=== PATIENT | female | born 1975 | race Caucasian/White ===

== ENCOUNTER → 2016-09-15 | Outpatient (CLI) | payer BC ==
[~2016-09-15] MED LIST: AMLODIPINE BESYL5 MG PO; BACTRIM DS 8001 TA1 PO; BACTRIM DS 8001 TAB PO; CIPRO250 MG PO; FLEXERIL10 MG PO; HYDROCODONE BIT1 T11 PO; KEFLEX500 MG PO; LISINOPRIL20 MG PO; MACROBID100 M1 PO; METFORMIN500 MG PO; MOTRIN800 MG PO; NKHM; NORETHINDRONE AC5 M1 PO; ROBITUSSIN DM120 ML PO; VIBRAMYCIN100 MG PO; ZOFRAN ODT4 MG SL
[2016-09-15 08:49] LABS: HEMOGLOBIN A1c 5.9 % (4.8-5.6)
== END | disposition home or self-care (01) ==
LOC: LAB 07:40
PROVIDERS: Internal Medicine Hospice and Palliative Medicine
DX: E11.65 Type 2 diabetes mellitus with hyperglycemia (principal)

== ENCOUNTER → 2016-09-29 | Outpatient (CLI) | payer BC | END | disposition home or self-care (01) | LOC: MAMMO 09:39 | DX: Z12.31 Encounter for screening mammogram for malignant neoplasm of breast (principal) ==

== ENCOUNTER → 2017-03-03 | Outpatient (CLI) | payer BC ==
[2017-03-03 12:16] LABS: HEMOGLOBIN A1c 6.2 % (4.8-5.6)
== END | disposition home or self-care (01) ==
LOC: LAB 11:14
PROVIDERS: Internal Medicine
DX: E11.65 Type 2 diabetes mellitus with hyperglycemia (principal)

== ENCOUNTER → 2017-03-20 | Outpatient (CLI) | payer BC | END | disposition home or self-care (01) | LOC: RESCLI 02:08 | DX: E11.9 Type 2 diabetes mellitus without complications (principal); I10 Essential (primary) hypertension; E66.01 Morbid (severe) obesity due to excess calories ==

== ENCOUNTER → 2017-06-16 | Outpatient (CLI) | payer BC ==
[2017-06-16 07:08] LABS: BASO % 0.4 % (0.0-1.0); EOS # 0.3 10*3/uL (0.0-0.4); EOS % 4.2 % (1.0-4.0); HEMATOCRIT 37.9 % (37.0-47.0); HEMOGLOBIN 12.4 g/dl (12.0-16.0); LYMPH # 2.5 10*3/uL (1.3-4.4); LYMPH % 34.6 % (27.0-41.0); MEAN CELL VOLUME 83.8 fl (81.0-99.0); MEAN CORPUSCULAR HGB 27.4 pg (27.0-31.0); MEAN CORPUSCULAR HGB CONC 32.7 g/dl (33.0-37.0); MEAN PLATELET VOLUME 9.8 fl (9.6-12.3); MONO # 0.6 10*3/uL (0.1-1.0); MONO % 8.9 % (3.0-9.0); NEUT # 3.7 10*3/uL (2.3-7.9); NEUT % 51.5 % (47.0-73.0); PLATELET COUNT AUTOMATED 203 10*3/uL (130-400); RED BLOOD COUNT 4.52 10*6/uL (4.10-5.10); RED CELL DISTRI WIDTH 14.6 % (0-14.5); WHITE BLOOD COUNT 7.2 10*3/uL (4.8-10.8)
[2017-06-16 07:27] LABS: ALBUMIN 3.7 gm/dl (3.1-4.5); ALKALINE PHOSPHATASE 56 U/L (45-117); BUN 13 mg/dl (7-24); CHLORIDE 108 mmol/L (98-107); CREATININE 0.76 mg/dL (0.55-1.02); POTASSIUM 4.2 mmol/L (3.5-5.1); SGOT/AST 12 IU/L (3-35); SGPT/ALT 18 U/L (12-78); SODIUM 139 mmol/L (136-145); TOTAL PROTEIN 7.6 gm/dL (6.4-8.2)
[2017-06-16 09:02] LABS: VITAMIN D, 25-HYDROXY 15.4 ng/mL (30-100)
== END | disposition home or self-care (01) ==
LOC: LAB 06:30
PROVIDERS: Hospitalist
DX: E55.9 Vitamin D deficiency, unspecified (principal); R79.89 Other specified abnormal findings of blood chemistry; Z79.4 Long term (current) use of insulin

== ENCOUNTER → 2017-06-19 | Outpatient (CLI) | payer BC | END | disposition home or self-care (01) | LOC: RESCLI 01:28 | DX: E11.65 Type 2 diabetes mellitus with hyperglycemia (principal); I10 Essential (primary) hypertension; E53.8 Deficiency of other specified B group vitamins; E55.9 Vitamin D deficiency, unspecified; J01.90 Acute sinusitis, unspecified; N93.8 Other specified abnormal uterine and vaginal bleeding; E66.01 Morbid (severe) obesity due to excess calories ==

== ENCOUNTER 2017-07-02 13:58 | Emergency (ER) | payer BC ==
[~2017-07-02] VITALS: Ht 167.6 cm; Wt 190.5 kg
[2017-07-02] MEDS ORDERED: MEDROL DOSEPAK4 MG PO (16:13)
[2017-07-02] MEDS ORDERED: AUGMENTIN 875875 MG PO (16:13)
[2017-07-02] MEDS ORDERED: ZYRTEC10 MG PO (16:13)
== END 2017-07-02 16:35 | disposition home or self-care (01) ==
LOC: ED 13:58
DX: J32.9 Chronic sinusitis, unspecified (principal); Z98.890 Other specified postprocedural states; Z79.899 Other long term (current) drug therapy; Z88.6 Allergy status to analgesic agent; Z88.8 Allergy status to other drugs, medicaments and biological substances

== ENCOUNTER 2017-08-06 12:49 | Emergency (ER) | payer BC ==
[~2017-08-06] VITALS: Ht 167.6 cm; Wt 190.5 kg
[~2017-08-06 12:49] MED LIST changes: +AUGMENTIN 875875 MG PO; +MEDROL DOSEPAK4 MG PO; +ZYRTEC10 MG PO
[2017-08-06 14:22] LABS: BASO % 0.4 % (0.0-1.0); EOS # 0.1 10*3/uL (0.0-0.4); EOS % 1.6 % (1.0-4.0); HEMATOCRIT 41.4 % (37.0-47.0); HEMOGLOBIN 13.8 g/dl (12.0-16.0); LYMPH # 2.2 10*3/uL (1.3-4.4); LYMPH % 32.5 % (27.0-41.0); MEAN CELL VOLUME 84.7 fl (81.0-99.0); MEAN CORPUSCULAR HGB 28.2 pg (27.0-31.0); MEAN CORPUSCULAR HGB CONC 33.3 g/dl (33.0-37.0); MEAN PLATELET VOLUME 9.5 fl (9.6-12.3); MONO # 0.6 10*3/uL (0.1-1.0); MONO % 8.7 % (3.0-9.0); NEUT # 3.8 10*3/uL (2.3-7.9); NEUT % 56.2 % (47.0-73.0); PLATELET COUNT AUTOMATED 215 10*3/uL (130-400); RED BLOOD COUNT 4.89 10*6/uL (4.10-5.10); RED CELL DISTRI WIDTH 14.2 % (0-14.5); WHITE BLOOD COUNT 6.7 10*3/uL (4.8-10.8)
[2017-08-06 14:40] LABS: ALBUMIN 3.9 gm/dl (3.1-4.5); ALKALINE PHOSPHATASE 64 U/L (45-117); BUN 11 mg/dl (7-24); CHLORIDE 106 mmol/L (98-107); CREATININE 0.88 mg/dL (0.55-1.02); LIPASE 103 U/L (73-393); POTASSIUM 3.9 mmol/L (3.5-5.1); SGOT/AST 17 IU/L (3-35); SGPT/ALT 24 U/L (12-78); SODIUM 140 mmol/L (136-145); TOTAL PROTEIN 7.8 gm/dL (6.4-8.2)
[2017-08-06 14:43] LABS: BETA-HCG, QUANT < 1.0 mIU/mL (1-3)
[2017-08-06 15:05] LABS: BILIRUBIN NEGATIVE (NEGATIVE); BLOOD 1+ (NEGATIVE); CLARITY SL CLOUDY (CLEAR); COLOR YELLOW (YELLOW); GLUCOSE NEGATIVE (NEGATIVE); KETONE NEGATIVE (NEGATIVE); LEUKO ESTERASE NEGATIVE (NEGATIVE); NITRITE NEGATIVE (NEGATIVE); PH 5.5 (5.0-9.0); SPECIFIC GRAVITY 1.025 (1.005-1.030); UROBILINOGEN 0.2 E.U./dl (0.2-1.0)
[2017-08-06 15:36] LABS: BACTERIA 2+; MUCOUS TRACE; RBC 0-2 rbc/hpf (0-2)
[2017-08-06] MEDS ORDERED: SEPTDS PO (15:58)
== END 2017-08-06 16:07 | disposition home or self-care (01) ==
LOC: ED 12:49
PROVIDERS: Emergency Medicine
DX: N39.0 Urinary tract infection, site not specified (principal); F10.10 Alcohol abuse, uncomplicated; E11.65 Type 2 diabetes mellitus with hyperglycemia; Z88.6 Allergy status to analgesic agent; Z88.8 Allergy status to other drugs, medicaments and biological substances; Z79.84 Long term (current) use of oral hypoglycemic drugs; Z79.899 Other long term (current) drug therapy

== ENCOUNTER → 2017-09-12 | Outpatient (CLI) | payer BC ==
[~2017-09-12] MED LIST changes: +SEPTDS PO
== END | disposition home or self-care (01) ==
LOC: RESCLI 03:34
DX: E11.9 Type 2 diabetes mellitus without complications (principal); E55.9 Vitamin D deficiency, unspecified; E53.8 Deficiency of other specified B group vitamins; I10 Essential (primary) hypertension; E66.01 Morbid (severe) obesity due to excess calories

== ENCOUNTER → 2017-10-20 | Outpatient (CLI) | payer BC ==
[2017-10-20 08:00] LABS: HEMATOCRIT 37.5 % (37.0-47.0); HEMOGLOBIN 12.4 g/dl (12.0-16.0); MEAN CELL VOLUME 82.8 fl (81.0-99.0); MEAN CORPUSCULAR HGB 27.4 pg (27.0-31.0); MEAN CORPUSCULAR HGB CONC 33.1 g/dl (33.0-37.0); MEAN PLATELET VOLUME 9.5 fl (9.6-12.3); RED BLOOD COUNT 4.53 10*6/uL (4.10-5.10); RED CELL DISTRI WIDTH 13.9 % (0-14.5); WHITE BLOOD COUNT 6.3 10*3/uL (4.8-10.8)
[2017-10-20 08:26] LABS: ALBUMIN 3.9 gm/dl (3.1-4.5); ALKALINE PHOSPHATASE 55 U/L (45-117); BUN 14 mg/dl (7-24); CHLORIDE 106 mmol/L (98-107); CREATININE 0.78 mg/dL (0.55-1.02); POTASSIUM 4.2 mmol/L (3.5-5.1); SGOT/AST 16 IU/L (3-35); SGPT/ALT 24 U/L (12-78); SODIUM 139 mmol/L (136-145)
[2017-10-20 08:35] LABS: FREE T4 1.13 ng/dl (0.76-1.46); THYROID STIM HORMONE (HS) 1.73 uIU/ml (0.358-4.75)
== END | disposition home or self-care (01) ==
LOC: LAB 07:19
PROVIDERS: Nurse Practitioner Primary Care; Student in an Organized Health Care Education/Training Program
DX: I10 Essential (primary) hypertension (principal); Z68.45 Body mass index [BMI] 70 or greater, adult

== ENCOUNTER → 2017-11-11 | Outpatient (CLI) | payer BC | END | disposition home or self-care (01) | LOC: US 09:46 | DX: N93.8 Other specified abnormal uterine and vaginal bleeding (principal); E66.01 Morbid (severe) obesity due to excess calories ==

== ENCOUNTER → 2018-01-03 | Outpatient (CLI) | payer BC | END | disposition home or self-care (01) | LOC: MAMMO 07:25 | DX: Z12.31 Encounter for screening mammogram for malignant neoplasm of breast (principal) ==

== ENCOUNTER → 2018-03-16 | Outpatient (CLI) | payer BC | END | disposition home or self-care (01) | LOC: RESCLI 02:40 | DX: I10 Essential (primary) hypertension (principal); E11.8 Type 2 diabetes mellitus with unspecified complications; E55.9 Vitamin D deficiency, unspecified; E53.8 Deficiency of other specified B group vitamins; E66.01 Morbid (severe) obesity due to excess calories; N93.8 Other specified abnormal uterine and vaginal bleeding ==

== ENCOUNTER → 2018-06-15 | Outpatient (CLI) | payer BC | END | disposition home or self-care (01) | LOC: RESCLI 01:49 | DX: I10 Essential (primary) hypertension (principal); E11.8 Type 2 diabetes mellitus with unspecified complications; N93.8 Other specified abnormal uterine and vaginal bleeding; E55.9 Vitamin D deficiency, unspecified; E53.8 Deficiency of other specified B group vitamins; E66.01 Morbid (severe) obesity due to excess calories; Z79.84 Long term (current) use of oral hypoglycemic drugs; Z79.899 Other long term (current) drug therapy; Z91.018 Allergy to other foods; Z88.6 Allergy status to analgesic agent ==

== ENCOUNTER → 2018-08-23 | Outpatient (CLI) | payer BC ==
[2018-08-23 11:06] LABS: BASO % 0.4 % (0.0-1.0); EOS # 0.2 10*3/uL (0.0-0.4); EOS % 2.7 % (1.0-4.0); HEMATOCRIT 37.4 % (37.0-47.0); HEMOGLOBIN 12.4 g/dl (12.0-16.0); LYMPH # 2.2 10*3/uL (1.3-4.4); LYMPH % 33.3 % (27.0-41.0); MEAN CELL VOLUME 85.4 fl (81.0-99.0); MEAN CORPUSCULAR HGB 28.3 pg (27.0-31.0); MEAN CORPUSCULAR HGB CONC 33.2 g/dl (33.0-37.0); MEAN PLATELET VOLUME 9.1 fl (9.6-12.3); MONO # 0.6 10*3/uL (0.1-1.0); MONO % 8.2 % (3.0-9.0); NEUT # 3.7 10*3/uL (2.3-7.9); NEUT % 54.8 % (47.0-73.0); PLATELET COUNT AUTOMATED 199 10*3/uL (130-400); RED BLOOD COUNT 4.38 10*6/uL (4.10-5.10); RED CELL DISTRI WIDTH 15.4 % (0-14.5); WHITE BLOOD COUNT 6.7 10*3/uL (4.8-10.8)
[2018-08-23 11:34] LABS: ALBUMIN 3.9 gm/dl (3.1-4.5); ALKALINE PHOSPHATASE 57 U/L (45-117); BUN 15 mg/dl (7-24); CHLORIDE 106 mmol/L (98-107); CHOLESTEROL 118 mg/dL (<200); CREATININE 0.76 mg/dL (0.55-1.02); HDL CHOLESTEROL 33 mg/dl (40-60); LDL CHOLESTEROL 47 mg/dL (9-159); SGOT/AST 14 IU/L (3-35); SGPT/ALT 22 U/L (12-78); SODIUM 140 mmol/L (136-145); TOTAL PROTEIN 7.5 gm/dL (6.4-8.2); TRIGLYCERIDES 190 mg/dl (<150); VLDL CHOLESTEROL 38 mg/dL (6-40)
[2018-08-23 12:05] LABS: VITAMIN D, 25-HYDROXY 34.8 ng/mL (30-100)
== END | disposition home or self-care (01) ==
LOC: LAB 10:49
PROVIDERS: Internal Medicine
DX: E11.8 Type 2 diabetes mellitus with unspecified complications (principal)

== ENCOUNTER → 2018-08-28 | Outpatient (CLI) | payer BC | END | disposition home or self-care (01) | LOC: RESCLI 04:53 | DX: E66.01 Morbid (severe) obesity due to excess calories (principal); I10 Essential (primary) hypertension; E11.8 Type 2 diabetes mellitus with unspecified complications; N93.8 Other specified abnormal uterine and vaginal bleeding; E55.9 Vitamin D deficiency, unspecified; E53.8 Deficiency of other specified B group vitamins; Z79.84 Long term (current) use of oral hypoglycemic drugs; Z79.899 Other long term (current) drug therapy; Z88.8 Allergy status to other drugs, medicaments and biological substances ==

== ENCOUNTER → 2018-09-29 | Outpatient (CLI) | payer BC ==
[2018-09-29 10:52] LABS: BUN 19 mg/dl (7-24); CHLORIDE 107 mmol/L (98-107); CREATININE 0.88 mg/dL (0.55-1.02); POTASSIUM 4.4 mmol/L (3.5-5.1); SODIUM 139 mmol/L (136-145)
== END | disposition home or self-care (01) ==
LOC: LAB 09:30
PROVIDERS: Internal Medicine
DX: E53.8 Deficiency of other specified B group vitamins (principal); I10 Essential (primary) hypertension

== ENCOUNTER → 2018-10-03 | Outpatient (CLI) | payer BC | END | disposition home or self-care (01) | LOC: RESCLI 02:49 | DX: I10 Essential (primary) hypertension (principal); E11.8 Type 2 diabetes mellitus with unspecified complications; N93.8 Other specified abnormal uterine and vaginal bleeding; E55.9 Vitamin D deficiency, unspecified; E53.8 Deficiency of other specified B group vitamins; E66.01 Morbid (severe) obesity due to excess calories; Z79.899 Other long term (current) drug therapy; Z88.8 Allergy status to other drugs, medicaments and biological substances ==

== ENCOUNTER → 2018-12-18 | Outpatient (CLI) | payer BC | END | disposition home or self-care (01) | LOC: MAMMO 13:21 | DX: Z12.31 Encounter for screening mammogram for malignant neoplasm of breast (principal) ==

== ENCOUNTER → 2019-02-19 | Outpatient (CLI) | payer BC | END | disposition home or self-care (01) | LOC: RESCLI 01:23 | DX: E66.01 Morbid (severe) obesity due to excess calories (principal); I10 Essential (primary) hypertension; E11.8 Type 2 diabetes mellitus with unspecified complications; N93.8 Other specified abnormal uterine and vaginal bleeding; E55.9 Vitamin D deficiency, unspecified; E53.8 Deficiency of other specified B group vitamins; L71.9 Rosacea, unspecified; Z79.899 Other long term (current) drug therapy; Z88.8 Allergy status to other drugs, medicaments and biological substances ==

== ENCOUNTER → 2019-03-21 | Outpatient (CLI) | payer BC | END | disposition home or self-care (01) | LOC: US 14:39 | DX: N92.0 Excessive and frequent menstruation with regular cycle (principal) ==

== ENCOUNTER → 2019-04-26 | Outpatient (CLI) | payer BC ==
[2019-04-26 10:30] LABS: BASO % 0.4 % (0.0-1.0); EOS # 0.1 10*3/uL (0.0-0.4); EOS % 1.1 % (1.0-4.0); HEMATOCRIT 36.1 % (37.0-47.0); HEMOGLOBIN 11.7 g/dl (12.0-16.0); LYMPH # 1.5 10*3/uL (1.3-4.4); MEAN CELL VOLUME 89.8 fl (81.0-99.0); MEAN CORPUSCULAR HGB 29.1 pg (27.0-31.0); MEAN CORPUSCULAR HGB CONC 32.4 g/dl (33.0-37.0); MEAN PLATELET VOLUME 10.5 fl (9.6-12.3); MONO # 0.5 10*3/uL (0.1-1.0); MONO % 10.3 % (3.0-9.0); NEUT # 2.5 10*3/uL (2.3-7.9); PLATELET COUNT AUTOMATED 171 10*3/uL (130-400); RED BLOOD COUNT 4.02 10*6/uL (4.10-5.10); RED CELL DISTRI WIDTH 14.4 % (0-14.5); WHITE BLOOD COUNT 4.5 10*3/uL (4.8-10.8)
[2019-04-26 10:35] LABS: ALBUMIN 3.7 gm/dl (3.1-4.5); ALKALINE PHOSPHATASE 55 U/L (45-117); BUN 8 mg/dl (7-24); CHLORIDE 111 mmol/L (98-107); CREATININE 0.94 mg/dL (0.55-1.02); IRON 43 ug/dL (50-170); POTASSIUM 3.9 mmol/L (3.5-5.1); SGOT/AST 7 IU/L (3-35); SGPT/ALT 14 U/L (12-78); SODIUM 141 mmol/L (136-145); TOTAL IRON BINDING CAPACITY 345 ug/dl (250-450); TOTAL PROTEIN 7.5 gm/dL (6.4-8.2)
[2019-04-26 10:40] LABS: THYROID STIM HORMONE (HS) 0.856 uIU/ml (0.358-4.75)
[2019-04-26 17:03] LABS: FERRITIN 8.4 ng/mL (10.0-291.0)
== END | disposition home or self-care (01) ==
LOC: LAB 09:21
PROVIDERS: Surgery
DX: E55.9 Vitamin D deficiency, unspecified (principal); Z98.84 Bariatric surgery status

== ENCOUNTER → 2019-05-16 | Outpatient (CLI) | payer BC ==
[2019-05-16 08:20] LABS: BASO % 0.4 % (0.0-1.0); EOS # 0.1 10*3/uL (0.0-0.4); EOS % 1.2 % (1.0-4.0); HEMATOCRIT 38.2 % (37.0-47.0); HEMOGLOBIN 12.6 g/dl (12.0-16.0); LYMPH # 1.7 10*3/uL (1.3-4.4); LYMPH % 30.8 % (27.0-41.0); MEAN CELL VOLUME 86.2 fl (81.0-99.0); MEAN CORPUSCULAR HGB 28.4 pg (27.0-31.0); MEAN PLATELET VOLUME 10.2 fl (9.6-12.3); MONO # 0.6 10*3/uL (0.1-1.0); MONO % 9.8 % (3.0-9.0); NEUT # 3.2 10*3/uL (2.3-7.9); NEUT % 57.6 % (47.0-73.0); PLATELET COUNT AUTOMATED 191 10*3/uL (130-400); RED BLOOD COUNT 4.43 10*6/uL (4.10-5.10); RED CELL DISTRI WIDTH 13.4 % (0-14.5); WHITE BLOOD COUNT 5.6 10*3/uL (4.8-10.8)
== END | disposition home or self-care (01) ==
LOC: LAB 07:35
PROVIDERS: Obstetrics & Gynecology
DX: N93.9 Abnormal uterine and vaginal bleeding, unspecified (principal)

== ENCOUNTER → 2019-05-29 | Outpatient (CLI) | payer BC | END | disposition home or self-care (01) | LOC: RESCLI 00:15 | DX: I10 Essential (primary) hypertension (principal); R73.03 Prediabetes; N93.8 Other specified abnormal uterine and vaginal bleeding; E55.9 Vitamin D deficiency, unspecified; E53.8 Deficiency of other specified B group vitamins; E66.01 Morbid (severe) obesity due to excess calories; L71.9 Rosacea, unspecified; Z79.899 Other long term (current) drug therapy ==

== ENCOUNTER → 2019-07-03 | Outpatient (CLI) | payer BC | END | disposition home or self-care (01) | LOC: RESCLI 00:10 | DX: I10 Essential (primary) hypertension (principal); H61.23 Impacted cerumen, bilateral; N93.8 Other specified abnormal uterine and vaginal bleeding; E55.9 Vitamin D deficiency, unspecified; E66.01 Morbid (severe) obesity due to excess calories; L71.9 Rosacea, unspecified; Z98.84 Bariatric surgery status; Z79.899 Other long term (current) drug therapy ==

== ENCOUNTER → 2019-10-15 | Outpatient (CLI) | payer BC | END | disposition home or self-care (01) | LOC: RESCLI 01:02 | DX: I10 Essential (primary) hypertension (principal); E55.9 Vitamin D deficiency, unspecified; E11.9 Type 2 diabetes mellitus without complications; E66.01 Morbid (severe) obesity due to excess calories; Z79.899 Other long term (current) drug therapy; Z98.84 Bariatric surgery status; Z88.8 Allergy status to other drugs, medicaments and biological substances ==

== ENCOUNTER → 2019-10-18 | Outpatient (CLI) | payer BC ==
[2019-10-18 10:17] LABS: CHOLESTEROL 124 mg/dL (<200); HDL CHOLESTEROL 43 mg/dl (40-60); LDL CHOLESTEROL 65 mg/dL (9-159); TRIGLYCERIDES 81 mg/dl (<150); VLDL CHOLESTEROL 16 mg/dL (6-40)
[2019-10-21 15:49] LABS: VITAMIN D, 25-HYDROXY 22.7 ng/mL (30-100)
== END | disposition home or self-care (01) ==
LOC: LAB 09:30
PROVIDERS: Internal Medicine
DX: E11.9 Type 2 diabetes mellitus without complications (principal); E55.9 Vitamin D deficiency, unspecified; Z98.84 Bariatric surgery status

== ENCOUNTER → 2020-04-16 | Outpatient (CLI) | payer BC | END | disposition home or self-care (01) | LOC: RESCLI 02:06 | DX: I10 Essential (primary) hypertension (principal); E55.9 Vitamin D deficiency, unspecified; E66.01 Morbid (severe) obesity due to excess calories; Z98.84 Bariatric surgery status ==

== ENCOUNTER → 2020-04-27 | Outpatient (CLI) | payer BC ==
[2020-04-27 14:01] LABS: BASO % 0.3 % (0.0-1.0); EOS # 0.1 10*3/uL (0.0-0.4); EOS % 1.5 % (1.0-4.0); HEMATOCRIT 42.3 % (37.0-47.0); LYMPH # 1.9 10*3/uL (1.3-4.4); LYMPH % 30.4 % (27.0-41.0); MEAN CELL VOLUME 86.7 fl (81.0-99.0); MEAN CORPUSCULAR HGB 28.5 pg (27.0-31.0); MEAN CORPUSCULAR HGB CONC 32.9 g/dl (33.0-37.0); MEAN PLATELET VOLUME 9.2 fl (9.6-12.3); MONO # 0.5 10*3/uL (0.1-1.0); MONO % 8.3 % (3.0-9.0); NEUT # 3.6 10*3/uL (2.3-7.9); NEUT % 58.9 % (47.0-73.0); PLATELET COUNT AUTOMATED 181 10*3/uL (130-400); RED BLOOD COUNT 4.88 10*6/uL (4.10-5.10); RED CELL DISTRI WIDTH 13.3 % (0-14.5); WHITE BLOOD COUNT 6.2 10*3/uL (4.8-10.8)
[2020-04-27 14:32] LABS: ALBUMIN 3.9 gm/dl (3.1-4.5); ALKALINE PHOSPHATASE 78 U/L (45-117); BUN 12 mg/dl (7-24); CHLORIDE 109 mmol/L (98-107); CREATININE 0.89 mg/dL (0.55-1.02); IRON 58 ug/dL (50-170); SGOT/AST 13 IU/L (3-35); SGPT/ALT 20 U/L (12-78); SODIUM 139 mmol/L (136-145); TOTAL IRON BINDING CAPACITY 328 ug/dl (250-450); TOTAL PROTEIN 7.9 gm/dL (6.4-8.2)
== END | disposition home or self-care (01) ==
LOC: LAB 13:47
PROVIDERS: Internal Medicine
DX: I10 Essential (primary) hypertension (principal); E66.01 Morbid (severe) obesity due to excess calories; Z98.84 Bariatric surgery status

== ENCOUNTER → 2020-08-20 | Outpatient (CLI) | payer BC | END | disposition home or self-care (01) | LOC: COVID19 11:41 | PROVIDERS: ATTEND Internal Medicine | DX: Z20.828 Contact with and (suspected) exposure to other viral communicable diseases (principal) ==

== ENCOUNTER → 2020-10-06 | Outpatient (CLI) | payer BC | END | disposition home or self-care (01) | LOC: RESCLI 00:49 | PROVIDERS: ATTEND Emergency Medicine | DX: I10 Essential (primary) hypertension (principal); E11.9 Type 2 diabetes mellitus without complications; L40.9 Psoriasis, unspecified; Z79.899 Other long term (current) drug therapy; Z98.84 Bariatric surgery status ==

== ENCOUNTER → 2021-05-20 | Outpatient (CLI) | payer BC | END | disposition home or self-care (01) | LOC: RESCLI 02:16 | PROVIDERS: ATTEND Internal Medicine | DX: I10 Essential (primary) hypertension (principal); E11.9 Type 2 diabetes mellitus without complications; R53.83 Other fatigue; E55.9 Vitamin D deficiency, unspecified; E53.8 Deficiency of other specified B group vitamins; R51.9 Headache, unspecified; Z79.899 Other long term (current) drug therapy ==

== ENCOUNTER → 2021-05-22 | Outpatient (CLI) | payer BC ==
[2021-05-22 11:22] LABS: BASO % 0.2 % (0.0-1.0); EOS # 0.1 10*3/uL (0.0-0.4); EOS % 1.7 % (1.0-4.0); HEMATOCRIT 40.7 % (37.0-47.0); LYMPH # 1.9 10*3/uL (1.3-4.4); LYMPH % 36.6 % (27.0-41.0); MEAN CELL VOLUME 87.3 fl (81.0-99.0); MEAN CORPUSCULAR HGB 29.2 pg (27.0-31.0); MEAN CORPUSCULAR HGB CONC 33.4 g/dl (33.0-37.0); MEAN PLATELET VOLUME 9.4 fl (9.6-12.3); MONO # 0.5 10*3/uL (0.1-1.0); MONO % 9.7 % (3.0-9.0); NEUT # 2.7 10*3/uL (2.3-7.9); NEUT % 51.4 % (47.0-73.0); PLATELET COUNT AUTOMATED 156 10*3/uL (130-400); RED BLOOD COUNT 4.66 10*6/uL (4.10-5.10); RED CELL DISTRI WIDTH 12.6 % (0-14.5); WHITE BLOOD COUNT 5.3 10*3/uL (4.8-10.8)
[2021-05-22 11:54] LABS: ALBUMIN 3.9 gm/dl (3.1-4.5); ALKALINE PHOSPHATASE 76 U/L (45-117); BUN 15 mg/dl (7-24); CHLORIDE 107 mmol/L (98-107); CHOLESTEROL 134 mg/dL (<200); CREATININE 0.74 mg/dL (0.55-1.02); LDL CHOLESTEROL 70 mg/dL (9-159); POTASSIUM 4.2 mmol/L (3.5-5.1); SGOT/AST 14 IU/L (3-35); SGPT/ALT 19 U/L (12-78); SODIUM 141 mmol/L (136-145); TOTAL PROTEIN 7.7 gm/dL (6.4-8.2); TRIGLYCERIDES 93 mg/dl (<150)
[2021-05-22 12:52] LABS: VITAMIN D, 25-HYDROXY 32.9 ng/mL (30-100)
== END | disposition home or self-care (01) ==
LOC: LAB 10:22
PROVIDERS: Student in an Organized Health Care Education/Training Program; ATTEND Internal Medicine
DX: I10 Essential (primary) hypertension (principal); E55.9 Vitamin D deficiency, unspecified; E53.8 Deficiency of other specified B group vitamins; E11.9 Type 2 diabetes mellitus without complications; R53.83 Other fatigue; R51.9 Headache, unspecified

== ENCOUNTER → 2021-07-01 | Outpatient (CLI) | payer BC | END | disposition home or self-care (01) | LOC: RESCLI 00:48 | PROVIDERS: ATTEND Internal Medicine | DX: G44.52 New daily persistent headache (NDPH) (principal); Z79.899 Other long term (current) drug therapy ==

== ENCOUNTER → 2021-07-09 | Outpatient (CLI) | payer BC | END | disposition home or self-care (01) | LOC: MRI 12:42 | PROVIDERS: ATTEND Internal Medicine | DX: G44.52 New daily persistent headache (NDPH) (principal) ==

== ENCOUNTER → 2022-11-29 | Outpatient (CLI) | payer OTHER ==
[2022-11-29 12:13] LABS: BILIRUBIN Negative (Negative); BLOOD Negative (Negative); CLARITY Cloudy (Clear); COLOR Yellow (Yellow); GLUCOSE Negative (Negative); KETONE Negative (Negative); LEUKO ESTERASE Negative (Negative); NITRITE Negative (Negative); PH 7.5 (4.5-8.0)
[2022-11-29 12:14] LABS: BASO % 0.4 % (0.0-1.0); EOS # 0.1 10*3/uL (0.0-0.4); EOS % 1.6 % (1.0-4.0); HEMATOCRIT 42.4 % (37.0-47.0); LYMPH # 1.4 10*3/uL (1.3-4.4); MEAN CELL VOLUME 88.3 fl (81.0-99.0); MEAN CORPUSCULAR HGB 29.8 pg (27.0-31.0); MEAN CORPUSCULAR HGB CONC 33.7 g/dl (33.0-37.0); MEAN PLATELET VOLUME 9.1 fl (9.6-12.3); MONO # 0.5 10*3/uL (0.1-1.0); MONO % 9.4 % (3.0-9.0); NEUT # 2.9 10*3/uL (2.3-7.9); NEUT % 59.4 % (47.0-73.0); PLATELET COUNT AUTOMATED 173 10*3/uL (130-400); RED CELL DISTRI WIDTH 13.7 % (0-14.5); RETICULOCYTE % 1.69 % (0.50-2.50); WHITE BLOOD COUNT 4.9 10*3/uL (4.8-10.8)
[2022-11-29 12:23] LABS: BACTERIA 4+
[2022-11-29 12:24] LABS: EPITHELIAL CELLS TNTC; WBC 0-2 wbc/hpf (0-5)
[2022-11-29 12:32] LABS: ALKALINE PHOSPHATASE 82 U/L (46-116); BUN 9 mg/dl (9-23); CHLORIDE 107 mmol/L (98-107); CHOLESTEROL 117 mg/dL (<200); GAMMA GLUTAMYL TRANSPEPTIDASE 13 U/L (0-73); LDL CHOLESTEROL 57 mg/dL (9-159); POTASSIUM 4.3 mmol/L (3.4-5.1); SGPT/ALT 8 U/L (10-49); T3 UPTAKE 22.4 % (22.4-36.7); THYROID STIM HORMONE (HS) 1.354 uIU/ml (0.550-4.780); THYROXINE (T4) TOTAL 8.2 ug/dl (4.5-10.9); TOTAL PROTEIN 7.4 gm/dL (6.0-8.0); TRIGLYCERIDES 90 mg/dl (<150); URIC ACID 5.5 mg/dL (3.1-7.8)
[2022-11-29 13:28] LABS: VITAMIN D, 25-HYDROXY 31.4 ng/mL (30-100)
[2022-11-30 12:09] LABS: ANTI-DSDNA ANTIBODIES 12 IU/mL (0-9)
== END | disposition home or self-care (01) ==
LOC: LAB 11:45
PROVIDERS: ATTEND Family Medicine
DX: E78.5 Hyperlipidemia, unspecified (principal); E55.9 Vitamin D deficiency, unspecified; R79.89 Other specified abnormal findings of blood chemistry; R53.83 Other fatigue; R74.8 Abnormal levels of other serum enzymes

== ENCOUNTER → 2022-12-19 | Outpatient (CLI) | payer OTHER | END | disposition home or self-care (01) | LOC: LAB 15:00 | PROVIDERS: ATTEND Specialist | DX: M47.816 Spondylosis without myelopathy or radiculopathy, lumbar region (principal); M25.78 Osteophyte, vertebrae; D89.89 Other specified disorders involving the immune mechanism, not elsewhere classified; M47.812 Spondylosis without myelopathy or radiculopathy, cervical region; M48.02 Spinal stenosis, cervical region ==

== ENCOUNTER → 2023-02-23 | Outpatient (CLI) | payer OTHER | END | disposition home or self-care (01) | LOC: MAMMO 07:55 | PROVIDERS: ATTEND Nurse Practitioner Women's Health | DX: Z12.31 Encounter for screening mammogram for malignant neoplasm of breast (principal) ==

== ENCOUNTER → 2024-07-10 | Outpatient (CLI) | payer OTHER | END | disposition home or self-care (01) | LOC: MAMMO 08:02 | PROVIDERS: ATTEND Nurse Practitioner Women's Health | DX: Z12.31 Encounter for screening mammogram for malignant neoplasm of breast (principal) ==

== ENCOUNTER → 2024-07-30 | Outpatient (CLI) | payer OTHER ==
[2024-07-30 08:44] LABS: BASO % 0.4 % (0.0-1.0); EOS # 0.2 10*3/uL (0.0-0.4); EOS % 3.1 % (1.0-4.0); HEMATOCRIT 41.3 % (37.0-47.0); MEAN CELL VOLUME 88.8 fl (81.0-99.0); MEAN CORPUSCULAR HGB 29.9 pg (27.0-31.0); MEAN CORPUSCULAR HGB CONC 33.7 g/dl (33.0-37.0); MONO # 0.6 10*3/uL (0.1-1.0); MONO % 10.7 % (3.0-9.0); NEUT % 54.9 % (47.0-73.0); PLATELET COUNT AUTOMATED 174 10*3/uL (130-400); RED BLOOD COUNT 4.65 10*6/uL (4.10-5.10); RED CELL DISTRI WIDTH 13.7 % (0-14.5); RETICULOCYTE % 1.94 % (0.50-2.50); WHITE BLOOD COUNT 5.4 10*3/uL (4.8-10.8)
[2024-07-30 08:58] LABS: ALKALINE PHOSPHATASE 77 U/L (46-116); BUN 12 mg/dl (9-23); CHLORIDE 106 mmol/L (98-107); CHOLESTEROL 140 mg/dL (<200); GAMMA GLUTAMYL TRANSPEPTIDASE 16 U/L (0-73); LDL CHOLESTEROL 77 mg/dL (9-159); POTASSIUM 4.2 mmol/L (3.4-5.1); SGPT/ALT 8 U/L (5-49); T3 UPTAKE 28.4 % (22.4-36.7); THYROXINE (T4) TOTAL 8.2 ug/dl (4.5-10.9); TOTAL PROTEIN 7.5 gm/dL (6.0-8.0); TRIGLYCERIDES 109 mg/dl (<150)
[2024-07-30 09:46] LABS: VITAMIN D, 25-HYDROXY 40.8 ng/mL (30-100)
== END | disposition home or self-care (01) ==
LOC: LAB 08:11
PROVIDERS: ATTEND Family Medicine
DX: R53.83 Other fatigue (principal); R79.89 Other specified abnormal findings of blood chemistry; E78.5 Hyperlipidemia, unspecified; E55.9 Vitamin D deficiency, unspecified

== ENCOUNTER → 2025-08-02 | Outpatient (CLI) | payer OTHER ==
[2025-08-02 08:56] LABS: BASO # 0.0 10*3/uL (0.0-0.1); BASO % 0.4 % (0.0-1.0); EOS # 0.2 10*3/uL (0.0-0.4); EOS % 3.3 % (1.0-4.0); MEAN CELL VOLUME 89.5 fl (81.0-99.0); MEAN CORPUSCULAR HGB 29.7 pg (27.0-31.0); MEAN PLATELET VOLUME 9.1 fl (9.6-12.3); MONO # 0.5 10*3/uL (0.1-1.0); MONO % 11.8 % (3.0-9.0); NEUT # 2.1 10*3/uL (2.3-7.9); NEUT % 46.0 % (47.0-73.0); NUCLEATED RED BLOOD CELL 0.0 % (0.0-0.0); NUCLEATED RED BLOOD CELL 0.0 10*3/uL (0.0-0.0); PLATELET COUNT AUTOMATED 171 10*3/uL (130-400); RED CELL DISTRI WIDTH 13.0 % (0-14.5); RETICULOCYTE % 1.80 % (0.50-2.50)
[2025-08-02 09:26] LABS: BUN 14 mg/dl (9-23); GAMMA GLUTAMYL TRANSFERASE 14 U/L (0-38); LDL CHOLESTEROL 65 mg/dL (9-159); SGPT/ALT 22 U/L (5-49); T3 UPTAKE 30.6 % (22.4-36.7); THYROXINE (T4) TOTAL 9.4 ug/dl (4.5-10.9)
[2025-08-02 09:45] LABS: VITAMIN D, 25-HYDROXY 55.9 ng/mL (30-100)
== END | disposition home or self-care (01) ==
LOC: LAB 08:30
PROVIDERS: ATTEND Family Medicine
DX: E55.9 Vitamin D deficiency, unspecified (principal); R79.89 Other specified abnormal findings of blood chemistry; R53.83 Other fatigue; E78.5 Hyperlipidemia, unspecified